=== PATIENT | female | born 1970 | race Caucasian/White ===

== ENCOUNTER → 2016-04-06 | Outpatient (CLI) | payer OTHER ==
[2015-04-15 15:12] VITALS: BP 150/93
[~2016-04-06] MED LIST: BLAC160C PO; BUPR150T15 PO; CYCL5TAB PO; IBUP200T58 PO; IOHEXOL 180 MG/ML 10 ML VIAL. ONE; NAPR500T3 PO; OMEG500C3 PO; OMEP20TA63 PO; PRAV10TA2 PO; RANI300T3 PO; methylPREDNISolone ACETATE 40 MG/ML VIAL. ONE; methylPREDNISolone ACETATE 80 MG/ML VIAL. ONE
--- NOTE | 2016-04-07 20:01 | PAIN ---
DATE OF SERVICE: 04/06/2016 CHIEF COMPLAINT: Low back and bilateral lower extremity pain. HISTORY OF PRESENT ILLNESS: The patient is a 46-year-old female who presents for initial evaluation with chief complaint of low back and bilateral lower extremity pain. The patient reports pain has been present since about 1994, on and off, worse over the past year or so and much worse over the past 4-5 months. The patient reports no new injury or accident she is aware of. It is gradually increasing over time, but kind of much worse when she is standing or walking, better with sitting, but has been aggravating her with sitting as well and she works in a job where she is mostly in a seated position. The patient reports the pain is constant, sharp, stabbing, throbbing, shooting, with radiating pain in bilateral lower extremities, aching, with some stiffness and pressure sensation as well across the low back and to bilateral lower extremities, posterolateral thighs, posterior anterior thighs, anteromedial upper thighs as well. The patient reports it wakes her from sleep, about 2 to 6 times at night. Does not affect her bowel or bladder control, but does affect her ability to walk greater than about 20 minutes. The patient reports her legs feel very fatigued, especially when climbing stairs, but no complete loss of motor function. The patient reports her disability rating from 0-10, 10 being the worse; as 8 with family home responsibilities, recreation, social activity, occupation; 9 with sexual behavior; 7 with self care and life support extremities. The patient has tried Naprosyn as well as cyclobenzaprine. She may be doing some stretching on her own but no formal physical or chiropractic treatments currently. The Naprosyn and cyclobenzaprine does help put only about 10-20% improvement. The patient had an MRI scan of her lumbar spine date 02/16/2016 showing changes of degenerative disk disease throughout the lumbar pain, most significantly at L2-L3, L3-L4, and L4-L5 levels with [id number] central spinal canal stenosis seen at L3-L4. Mild left neural foraminal stenosis seen at L3-L4. The patient again reports no complete loss of motor function with significant fatigability especially with climbing stairs in both lower extremities. PAST MEDICAL HISTORY: Significant for seasonal allergies, cigarette smoking, gastroesophageal reflux, cystitis, headaches, arthritis and cold sores. PREVIOUS SURGERIES: Include ACL repair on the left and RCR repair on the right, also tonsillectomy. CURRENT MEDICATIONS: Include Zantac, Prilosec, pravastatin, fish oil, Naprosyn, Wellbutrin, cyclobenzaprine, and black Cohosh root extract. ALLERGIES: THE PATIENT IS ALLERGIC TO PENICILLIN. FAMILY HISTORY: Significant for heart disease on patient's mother's side. SOCIAL HISTORY: The patient smokes about 5 cigarettes a day and has for 34 years, does not drink alcohol but extremely rarely. She is lives with spouse and one child at home. Lives locally in [place], [place] and works at a [employer]. REVIEW OF SYSTEMS: The patient's review of systems is positive for those mentioned in history of present illness. All systems reviewed were negative, otherwise negative. It is complete, full and well documented on the patient's chart. PHYSICAL EXAMINATION: VITAL SIGNS: Today, blood pressure 139/89, pulse 92, respiratory rate 18, temperature 97.9 degrees Fahrenheit. Height 5 feet 1 inch, weighs 202 pounds. GENERAL: The patient is awake, alert, oriented, and appropriate, very pleasant demeanor. HEENT: Shows normocephalic, atraumatic. Extraocular movements intact and symmetrical. Oral cavity, mucous membranes moist and intact. Dentition is intact. NECK: Supple without palpable lymphadenopathy noted. Swallow reflex is symmetrical. Neck shows rotational motion of cervical spine including extension, flexion as well as left lateral rotation greater than 45 degrees without pain reported. CHEST: Shows normal on inspection. Breath sounds clear to auscultation bilaterally. HEART: Shows S1, S2 Clear. ABDOMEN: Soft, nontender, nondistended, obese on inspection, but without palpable organomegaly. No rebound or guarding demonstrated. BACK: Shows spine grossly midline, normal appearing thoracic kyphosis and normal lordotic curvature as well as cervical lordotic curvature. No previous bruises, lesions, rashes or scars noted. Lumbar paraspinal musculature shows some moderate tenderness with palpation, but appears roughly symmetrical on inspection, no radiation of pain is demonstrated. No trigger points. No asymmetry. Muscle girth is normal and firm with palpation, slightly tender to moderately tender in the mid and lower lumbar distribution, but not in the upper distribution which is also firm. No tenderness over the spinous processes themselves. No tenderness over the sacrum and sacroiliac regions. The patient shows full rotational motion of the lumbar spine greater than 10 degrees right and left lateral as well as full extension, greater than 10 degrees forward flexion at 45 degrees without increased pain. EXTREMITIES: Lower extremities show deep tendon reflexes are 2+, patellar tendons are 1+, tendo calcaneus tendons symmetrical. Motor exam is strong with dorsiflexion and extension rated approximately 4 on a scale of 5, but symmetrical. As is quadriceps and hamstring flexion 4 on a scale of 5, but equal and symmetrical as well. Peripheral pulses are 2+ posterior tibial and dorsalis pedis pulses. No peripheral edema is noted. No clubbing or cyanosis. Lower extremities are warm and dry to touch, equal in color and appearance. Straight leg raise will negative for reproduction of radicular symptoms bilaterally at about 45 degrees. The patient's Gaenslen's and Osmin's maneuvers are negative for reproduction of pain as well bilaterally. The patient is able to stand still on her toes without significant difficulties or loss of balance, able to heel-toe step walk for several steps, but does not appear to lose her balance as well. Has a normal appearing gait for a short distance walking, not using any assisted devices such as canes or walkers to ambulate. IMPRESSION: 1. This is a 46-year-old female with long history of low back pain, radiating to the lower extremities, worse over the past few months in radicular pattern. 2. MRI scan is noted. 3. History of arthritis. 4. Cigarette smoking. PLAN: Options were discussed with the patient including conservative medical management, physical therapy, interventional techniques. She would like to proceed with interventional techniques as she is doing some stretching and strengthening on her own. We discussed the lumbar epidural steroid injection description as well as anatomical models to describe the procedure. Risks were then discussed including but not limited to bleeding, infection, possibly subdural hematoma, subsequent neurologic compromise, dural puncture headaches, spinal cord and/or nerve damage, side effects of steroid medication and poor results regarding pain control. The patient understands and wished to proceed. The patient will return to clinic in approximately 2 weeks for followup. She was counseled on return appointment, activity level, and side effects be aware of. DIAGNOSES: Lumbar radiculopathy with lumbar degenerative disk disease and lumbar spinal stenosis. PROCEDURE: Lumbar epidural steroid ejection, translaminar approach at the L4-L5 level; using C-arm fluoroscopic guidance under sterile prep and drape using local anesthetic. MEDICATIONS INJECTED: 120 mg Depomedrol plus 10 mL preservative free normal saline and 2 mL Isovue contrast. CONDITION AT DISCHARGE: Stable. The patient tolerated the procedure well and had no complications. RODO PARK MD DR: PREET/renay JOB#: [id number] / [id number] IKE Ceballos MD
== END | disposition home or self-care (01) ==
LOC: PNCL 10:29
PROVIDERS: ATTEND Anesthesiology
DX: M51.16 Intervertebral disc disorders with radiculopathy, lumbar region (principal); M48.06 Spinal stenosis, lumbar region; M19.90 Unspecified osteoarthritis, unspecified site; F17.200 Nicotine dependence, unspecified, uncomplicated; K21.9 Gastro-esophageal reflux disease without esophagitis; F41.9 Anxiety disorder, unspecified; F32.9 Major depressive disorder, single episode, unspecified
CPT/HCPCS: 62327; J1030; J1040

== ENCOUNTER → 2016-05-05 | Outpatient (CLI) | payer OTHER ==
[2015-04-15 15:12] VITALS: BP 150/93
--- NOTE | 2016-05-06 00:20 | PAIN ---
DATE OF SERVICE: 05/05/2016 PROGRESS NOTE DIAGNOSES: Lumbar radiculopathy with lumbar degenerative disk disease and lumbar spinal stenosis. HISTORY OF PRESENT ILLNESS: The patient is a 46-year-old female, who returns for followup status post lumbar epidural steroid injection x 1. The patient reports about 50% improvement after the first injection in the low back, bilateral hips and thighs, lower legs. The patient reports now is only on the right side, in the low back and hip, posterior gluteus, posterolateral thigh, anterior thigh is much improved, still a "prickly pain" with electrical sensations in the back and right leg only occasionally. The patient reports ____ from 1-6 on a scale of 10, worse with activity, standing and walking, but has been able to walk much greater distances than prior to her last visit much greater ease and comfort and is very pleased with her progress thus far. The patient reports she is sleeping better at night. No new motor or sensory deficits, no new bowel or bladder incontinence or other complaints. PHYSICAL EXAMINATION: VITAL SIGNS: The patient's blood pressure 149/94, pulse 104, respirations 18, temperature 97.9 degrees Fahrenheit, height 5 feet 1 inch, weight is 201 pounds. GENERAL: The patient is awake, alert, oriented, appropriate, very pleasant demeanor. HEENT: Head shows normocephalic, atraumatic. Extraocular movements are intact and symmetrical. Oral cavity shows mucous membranes moist and pink. Dentition is intact. NECK: Shows anterior throat supple without palpable lymphadenopathy noted. Swallow reflex is symmetrical. CHEST: Shows normal on inspection. Breath sounds are clear to auscultation bilaterally. HEART: Shows S1 and S2 clear. No murmurs are auscultated. ABDOMEN: Soft, nontender, nondistended. No palpable organomegaly, no rebound or guarding demonstrated. BACK: The patient's back shows spine grossly midline. Lumbar paraspinous muscle shows symmetrical. On inspection with palpation is firm, but normal muscle girth with mild tenderness with palpation in the lower lumbar distribution, but only diffusely without radiation. EXTREMITIES: Lower extremities showed deep tendon reflexes 2+ in the patellar tendons. Motor exam is strong with approximately 4 on a scale of 5 dorsiflexion, extension, but equal and symmetrical. Options were discussed with the patient. At this time, the patient's old chart was reviewed as her current medication regimen updated. Current review of systems updated today as well and we will proceed with a second lumbar epidural steroid injection today with fluoroscopic guidance. Risks were again discussed including, but not limited to bleeding, infection, possibility of epidural hematoma, subsequent neurologic compromise, dural puncture, headaches, spinal cord and/or nerve damage, side effects of steroid medication and poor results regarding pain control. The patient understands and wishes to proceed. The patient will return to clinic in approximately 2 weeks for followup, was counseled on return appointment, activity level and side effects to be aware of. DIAGNOSIS: Lumbar radiculopathy with lumbar spinal stenosis and lumbar degenerative disk disease. PROCEDURE: Lumbar epidural steroid injection in translaminar approach at L4-L5 level using C-arm fluoroscopic guidance under sterile prep and drape using local anesthetic. Medication injected 120 mg Depo-Medrol plus 10 mL of preservative-free normal saline and 2 mL of Isovue for contrast. CONDITION AT DISCHARGE: Stable. The patient tolerated procedure well, had no complications. RODO PARK MD DR: PREET/renay JOB#: [id number] / [id number]
== END | disposition home or self-care (01) ==
LOC: PNCL 08:30
PROVIDERS: ATTEND Anesthesiology
DX: M51.16 Intervertebral disc disorders with radiculopathy, lumbar region (principal); M48.06 Spinal stenosis, lumbar region; K21.9 Gastro-esophageal reflux disease without esophagitis; Z87.39 Personal history of other diseases of the musculoskeletal system and connective tissue; F41.9 Anxiety disorder, unspecified; F32.9 Major depressive disorder, single episode, unspecified
CPT/HCPCS: 62323; J1030; J1040

== ENCOUNTER → 2016-06-07 | Outpatient (CLI) | payer OTHER ==
[2015-04-15 15:12] VITALS: BP 150/93
--- NOTE | 2016-06-08 03:34 | PN ---
DATE: 06/07/2016 DIAGNOSES: Lumbar radiculopathy with lumbar degenerative disk disease and lumbar spinal stenosis. HISTORY OF PRESENT ILLNESS: This is a 46-year-old female who returns for followup status post lumbar epidural steroid injection x 2. The patient reports about 80% improvement from the original pain she had in her back and right lower extremity, but now the pain is only in the low back and the gluteus areas, is a stabbing, throbbing pain as shooting and radiating, worse when she walks. The patient reports ____ pain has gone completely 0/10 when she is walking for more than about 5 minutes, it becomes of 10/10 in the gluteus and the low back itself. The patient describes this about an 8 on a scale of 10 on average with standing and walking, but much better with sitting or reduced to a 0. The patient reports no new motor or sensory deficits, no new bowel or bladder incontinence or other complaints. PHYSICAL EXAMINATION: VITAL SIGNS: The patient's blood pressure 158/120, pulse 105, respirations are 18, and temperature 98.0 degrees Fahrenheit. Height is 5 feet 1 inch, weight is 206 pounds. GENERAL: The patient is awake, alert, oriented, appropriate, very pleasant demeanor. HEENT: Head shows normocephalic, atraumatic. Extraocular movements are intact and symmetrical. Oral cavity, mucous membranes are moist and pink. Dentition is intact. NECK: Shows anterior throat supple without palpable lymphadenopathy noted. Swallow reflex is symmetrical. CHEST: Shows normal on inspection. Breath sounds are clear to auscultation bilaterally. HEART: Shows S1 and S2 clear. ABDOMEN: Soft, obese, nontender, and nondistended. No palpable organomegaly is noted. No rebound or guarding demonstrated. BACK: Shows spine grossly in midline. Normal appearing thoracic kyphosis and lumbar lordotic curvature. Lumbar paraspinous muscle shows some mild tenderness to palpation, but only diffusely in the lower lumbar distribution and again only mildly. No tenderness over the sacrum or sacroiliac regions. No tenderness over the spinous processes. The patient shows good rotational motion of the lumbar spine, both laterally as well as extension and forward flexion without exacerbation of pain. EXTREMITIES: Lower extremities show deep tendon reflexes 2+ in the patellar tendons, 1+ tendo calcaneus tendons are equal. Motor exam is approximately 4 on a scale of 5, but equal and symmetrical with dorsiflexion, extension, quadriceps and hamstring flexion and symmetrical. Options were discussed with the patient and the patient's old chart was reviewed as her current medication regimen updated. Current review of systems updated today as well. We will proceed with the third lumbar epidural steroid injection today with fluoroscopic guidance. Risks were again discussed including, but not limited to bleeding, infection, possibility of epidural hematoma, subsequent neurologic compromise, dural puncture, headaches, spinal cord and/or nerve damage, side effects of steroid medication and poor results regarding pain control. The patient understands and wishes to proceed. The patient will return to clinic in approximately 2 weeks for followup, was counseled on return appointment, activity level and side effects to be aware of. DIAGNOSIS: Lumbar radiculopathy with lumbar spinal stenosis, lumbar degenerative disease. PROCEDURE: Lumbar epidural steroid injection in translaminar approach at the L4-L5 level using C-arm fluoroscopic guidance under sterile prep and drape using local anesthetic. MEDICATION INJECTED: Depo-Medrol 120 mg plus 10 mL of preservative-free normal saline and 2 mL of Isovue for contrast. CONDITION AT DISCHARGE: Stable. The patient tolerated procedure well, had no complications. RODO PARK MD DR: PREET/renay JOB#: [id number] / [id number]
== END ==
LOC: PNCL 13:17
PROVIDERS: ATTEND Anesthesiology
DX: M51.16 Intervertebral disc disorders with radiculopathy, lumbar region (principal); M48.06 Spinal stenosis, lumbar region; K21.9 Gastro-esophageal reflux disease without esophagitis; F41.9 Anxiety disorder, unspecified; F32.9 Major depressive disorder, single episode, unspecified
CPT/HCPCS: 62323; J1030; J1040